=== PATIENT | male | born 1960 ===

== ENCOUNTER 2016-10-31 11:17 | Emergency (ER) | payer SELFPAY ==
--- NOTE | 2016-10-31 12:57 | UC ---
Ahmet Estrella Angela, scribed [facility] MD on 10/31/16 at 1238 . Back Pain HPI - HPI Summary HPI Summary: In Room Note: This pt is a 56 y/o male presenting to [facility] c/o low back pain since yesterday. Pt reports he was on his hands and knees fixing doors when he did a twisting movement and now c/o low back pain radiating to his right leg. Pt denies urinary or bowel incontinence, weakness in LE, abd pain. He had cortisone shots 3 weeks ago for a similar problem. He notes he can only drive 30 minutes before his right leg becomes numb and tingles, a problem he has had prior to his back injury yesterday, but it has become worse since yesterday. Pt had an MRI (3 weeks ago) before that shows a herniated disc. MD's Note: VSS, afebrile, BP 131/83, pulse ox 99, 7/10 low back pain. Nonsmoker. History of herniated disc. Visit history is noncontributory. Nurses Note: pt was on his hands and knees setting some doors, pt did aq twisting,pushing, pulling motion. pt is to rt lower back, shooting down his rt leg. this injury happened yesterday am. - History of Current Complaint Chief Complaint: UCBackPain Stated Complaint: BACK INJURY Time Seen by Provider: 10/31/16 12:31 Hx Obtained From: Patient Onset/Duration: Lasting Hours Timing: Lasting Hours Back Pain: Radiates To - right leg Aggravating: Movement Associated Signs And Symptoms: Negative: Bladder Incontinence, Bowel Incontinence - Allergies/Home Medications Allergies/Adverse Reactions: Allergies Allergy/AdvReac Type Severity Reaction Status Date / Time No Known Allergies Allergy Verified 10/31/16 11:44 Home Medications: Home Medications Ibuprofen [Advil] 600 mg PO 10/31/16 [History] Muscle Relaxer 10/31/16 [History] PMH/Surg Hx/FS Hx/Imm Hx - Additional Past Medical History Additional PMH: PMHx: herniated disc Other Endocrine History: DENIES: diabetes Other Cardiovascular History: DENIES: HTN - Surgical History Surgical History: None - Family History Known Family History: Positive: Other - hips and knees problems Negative: Cardiac Disease, Hypertension - Social History Occupation: Employed Full-time Alcohol Use: Occasionally Substance Use Type: None Smoking Status (MU): Never Smoked Tobacco Review of Systems Constitutional: Negative Skin: Negative Eyes: Negative ENT: Negative Respiratory: Negative Cardiovascular: Negative Gastrointestinal: Negative Genitourinary: Negative Motor: Negative Neurovascular: Negative Musculoskeletal: Other: - low back pain, right leg pain Neurological: Numbness - right leg numbness and tingling All Other Systems Reviewed And Are Negative: Yes Physical Exam Triage Information Reviewed: Yes Vital Signs: Initial Vital Signs Temp 98.4 F 10/31/16 11:40 Pulse 64 10/31/16 11:40 Resp 18 10/31/16 11:40 BP 131/83 10/31/16 11:40 Pulse Ox 99 10/31/16 11:40 Vital Signs Reviewed: Yes - Additional Comments The patient is well-nourished in no acute distress. The skin is warm and dry and skin color reflects adequate perfusion. HEENT: The head is normocephalic and atraumatic. The pupils are equal and reactive. The conjunctivae are clear and without drainage. Nares are patent and without drainage. Mouth reveals moist mucous membranes and the throat is without erythema and exudate. The external ears are intact. The ear canals are patent and without drainage. The tympanic membranes are intact. Neck is supple with full range of motion and non-tender. Respiratory: Chest is non-tender. Lungs are clear to auscultation and breath sounds are symmetrical and equal. Cardiovascular: Hear is regular rate and rhythm. There is no murmur or rub auscultated. There is no peripheral edema and pulses are symmetrical and equal. Abdomen: The abdomen is soft and non-tender. There are normal bowel sounds heard in all four quadrants. Musculoskeletal: Extremities are non-tender with full range of motion. There is good capillary refill. There is no peripheral edema or calf tenderness elicited. THERE IS TENDERNESS OF THE RIGHT PARALUMBAR AREA. DISTAL CIRCULATION AND MOTOR IS INTACT. HYPERESTHESIA WITH TOUCH OF THE RIGHT LOWER EXTREMITY. NO DECREASE IN STRENGTH OR CIRCULATION. Neurological: Patient is alert and oriented to person, place and time. The patient has symmetrical motor strength in all four extremities. Psychiatric: The patient has an appropriate affect and does not exhibit any anxiety or depression. Back Pain Course/Dx - Course Course Of Treatment: On exam, THERE IS TENDERNESS OF THE RIGHT PARALUMBAR AREA. DISTAL CIRCULATION AND MOTOR IS INTACT. HYPERESTHESIA WITH TOUCH OF THE RIGHT LOWER EXTREMITY. NO DECREASE IN STRENGTH OR CIRCULATION. Medications have been included in the original chart and reviewed. Patient is Urgent/Emergent. BP elevated due to current condition w/o HTN in PMH. - Differential Dx/Diagnosis Differential Diagnosis/HQI/PQRI: Other - Nerve vs muscle injury to right lumbar Provider Diagnoses: 1. Lumbar muscle injury. 2. Possible nerve impingement. 3. History of osteoarthritis and lower back, lumbar radiculopathy bilateral Discharge - Discharge Plan Condition: Stable Disposition: HOME Prescriptions: Cyclobenzaprine TAB* [Flexeril TAB*] 10 mg PO BID #20 tab MDD 2 Patient Education Materials: Lumbar Disc Herniation (ED), Low Back Strain (ED) Forms: *Gen. Provider Communication Referrals: No Primary Care Phys,NOPCP [Primary Care Provider] - Additional Instructions: WE DISCUSSED: 1. You have sprained the muscles of your low back. 2. You may also have irritated the nerves going down your legs. Watch for any increased pain, disability, problem with bowel or bladder or increasing numbness. Follow up in ED for these symptoms. 3. FOR PAIN: ACETAMINOPHEN 500MG AND IBUPROFEN 600MG TOGETHER FOR DISCOMFORT UP TO THREE TIMES A DAY. 4. For muscle spasm: Flexeril 5. Consider Physical Therapy if condition doesn't improve in 5 days. Follow up with your doctor. 6. Warm moist heat to the area in the morning; ice massage during the day for acute pain. The documentation as recorded by the Ahmet jerome Angela accurately reflects the service I personally performed and the decisions made by me, Christian Parra MD.
== END 2016-10-31 13:02 | disposition home or self-care (01) ==
LOC: UCEAST 11:17
DX: S39.012A Strain of muscle, fascia and tendon of lower back, initial encounter (principal); M51.36 Other intervertebral disc degeneration, lumbar region; M54.16 Radiculopathy, lumbar region; X50.1XXA Overexertion from prolonged static or awkward postures, initial encounter
CPT/HCPCS: 99202; G0463